=== PATIENT | female | born 1980 | race Caucasian/White ===

== ENCOUNTER 2017-01-06 06:22 | Emergency (ER) | payer MEDICAID ==
[~2017-01-06] VITALS: Ht 170.2 cm; Wt 84.8 kg
[2017-01-06 06:25] VITALS: BP_SYST 120
[2017-01-06 06:50] VITALS: BP_SYST 124
== END 2017-01-06 06:50 | disposition home or self-care (01) ==
LOC: SED 06:22
DX: G44.209 Tension-type headache, unspecified, not intractable (principal); I10 Essential (primary) hypertension
CPT/HCPCS: 81025; 99283

== ENCOUNTER 2017-03-02 00:18 | Emergency (ER) | payer MEDICAID ==
[~2017-03-02] VITALS: Ht 170.2 cm; Wt 83.9 kg
[2017-03-02 00:27] VITALS: BP_SYST 133
--- NOTE | 2017-03-02 00:39 | NUR ---
Patient to ER bed 04 to gown for evaluation. Side rails up. Report given to MICHAEL Hebert
--- NOTE | 2017-03-02 00:45 | NUR ---
Pt has had productive cough for one week. Will continue to monitor. No distress noted.
--- NOTE | 2017-03-02 01:05 | NUR ---
Arnold garcia in ED - 03/02/17 at 0442 by LEVON Kimo Brand at bedside examining patient.
--- NOTE | 2017-03-02 01:05 | NUR ---
ER Dr. Brand at bedside examining patient.
[2017-03-02 01:28] VITALS: BP_SYST 130
--- NOTE | 2017-03-02 01:28 | NUR ---
Patient given written and verbal discharge instructions and verbalizes understanding. ER MD DR. ROY discussed with patient the results and treatment provided. Patient in stable condition. ID arm band removed. Rx of TYLENOL, ZITHROMAX, AND SUDAFED given. Patient educated on pain management and to follow up with PMD. Pain Scale 0/10, NO SOB OR DISTRESS. Opportunity for questions provided and answered.
== END 2017-03-02 01:28 | disposition home or self-care (01) ==
LOC: SED 00:18
DX: J20.9 Acute bronchitis, unspecified (principal); I10 Essential (primary) hypertension; Z90.49 Acquired absence of other specified parts of digestive tract; Z90.89 Acquired absence of other organs; Z98.51 Tubal ligation status
CPT/HCPCS: 99283